=== PATIENT | female | born 1945 | race Caucasian/White ===

== ENCOUNTER 2017-05-22 12:03 | Emergency (ER) | payer MEDICARE ==
[2017-05-22] MEDS ORDERED: DIPH,PERTUS(ACELL)TETVAC-LF 0.5 ML VIAL IM ONE (12:12)
--- NOTE | 2017-05-22 12:16 | ED ---
General Adult HPI - General Stated complaint: Fall Time Seen by Provider: 05/22/17 12:07 Source: patient, RN notes reviewed Limitations: no limitations - History of Present Illness Initial comments: Patient is a pleasant 71-year-old female presenting to the emergency department following a fall. Incident occurred prior to arrival. Incident was not witnessed. Patient cannot provide many details. Patient reportedly is normally oriented 2. Patient denies any significant discomfort. No chest pain or dyspnea. No neck or back pain. No abdominal pain. Patient did ambulate following the fall. - Related Data Home Medications Medication Instructions Recorded Confirmed Cholecalciferol [Vitamin D3] 1,000 unit PO DAILY 04/25/16 05/22/17 Levothyroxine Sodium [Levoxyl] 88 mcg PO DAILY 04/25/16 05/22/17 Primidone [Mysoline] 50 mg PO BID 04/25/16 05/22/17 Simvastatin [Zocor] 40 mg PO HS 04/25/16 05/22/17 Acetaminophen [Tylenol] 500 mg PO Q4H PRN 04/28/17 05/22/17 Aspirin EC [Ecotrin] 325 mg PO DAILY 04/28/17 05/22/17 Budesonide [Budesonide EC] 9 mg PO AC-BRKFST 04/28/17 05/22/17 Donepezil [Aricept] 10 mg PO HS 04/28/17 05/22/17 FLUoxetine HCL [PROzac] 40 mg PO DAILY 04/28/17 05/22/17 INSULIN LISPRO (HumaLOG) [humaLOG] 10 units SQ AC-TID 04/28/17 05/22/17 INSULIN LISPRO (HumaLOG) [humaLOG] See Protocol SQ AC-TID PRN 04/28/17 05/22/17 Latanoprost [Xalatan 0.005%] 1 drop BOTH EYES HS 04/28/17 05/22/17 Loperamide HCl [Loperamide] 2 mg PO QID PRN 04/28/17 05/22/17 Previous Rx's Medication Instructions Recorded Clopidogrel Bisulfate [Plavix] 75 mg PO DAILY #30 tab 04/28/16 Insulin Glargine [Lantus] 14 units SQ HS #0 05/17/17 Cephalexin [Keflex] 500 mg PO TID #15 cap 05/22/17 Allergies Allergy/AdvReac Type Severity Reaction Status Date / Time Iodinated Contrast- Oral and Allergy Unknown Verified 05/22/17 12:08 IV Dye [Iodinated Contrast Media - IV Dye] Review of Systems ROS Statement: Those systems with pertinent positive or pertinent negative responses have been documented in the HPI. ROS Other: All systems not noted in ROS Statement are negative. Constitutional: Denies: fever Eyes: Denies: eye pain ENT: Denies: ear pain Respiratory: Denies: cough, dyspnea Cardiovascular: Denies: chest pain Endocrine: Denies: fatigue Gastrointestinal: Denies: abdominal pain Genitourinary: Denies: dysuria Musculoskeletal: Denies: back pain Skin: Denies: rash Neurological: Denies: weakness Past Medical History Past Medical History: Cancer, CVA/TIA, Diabetes Mellitus, Hypertension, Thyroid Disorder Additional Past Medical History / Comment(s): breast CA, kidney stones, colitis History of Any Multi-Drug Resistant Organisms: None Reported Additional Past Surgical History / Comment(s): left rotator cuff, lumpectomy Past Anesthesia/Blood Transfusion Reactions: No Reported Reaction Past Psychological History: Anxiety, Depression Smoking Status: Never smoker Past Alcohol Use History: None Reported Past Drug Use History: None Reported - Past Family History Father Family Medical History: Diabetes Mellitus Mother History Unknown: Yes General Exam Limitations: no limitations General appearance: alert, in no apparent distress Head exam: Present: other (forehead abrasions) Eye exam: Present: normal appearance, PERRL, EOMI ENT exam: Present: normal oropharynx, other (nasal swelling and mild tenderness. driedBlood in the nasal passages.) Neck exam: Present: normal inspection. Absent: tenderness Respiratory exam: Present: normal lung sounds bilaterally. Absent: chest wall tenderness Cardiovascular Exam: Present: regular rate, normal rhythm GI/Abdominal exam: Present: soft. Absent: tenderness Extremities exam: Present: normal inspection, full ROM. Absent: tenderness Back exam: Present: normal inspection. Absent: vertebral tenderness Neurological exam: Present: alert, CN II-XII intact. Absent: motor sensory deficit Expanded Patient oriented to: Present: person, place. Absent: time Sensory exam: Upper Extremity Light Touch: Normal, Lower Extremity Light Touch: Normal Motor strength exam: RUE: 5, LUE: 5, RLE: 5, LLE: 5 Psychiatric exam: Present: normal affect, normal mood Skin exam: Present: abrasion (facial abrasions) Course Vital Signs 05/22/17 12:13 Temperature 98.9 F Pulse Rate 74 Respiratory 16 Rate Blood Pressure 179/83 O2 Sat by Pulse 96 Oximetry Medical Decision Making - Medical Decision Making patient reevaluated and resting comfortably in bed. Patient and son updated on results - Lab Data Result diagrams: 05/22/17 12:38 05/22/17 12:38 Lab Results 05/22/17 05/22/17 05/22/17 Range/Units 12:38 12:38 12:38 WBC 5.9 (3.8-10.6) k/uL RBC 3.71 L (3.80-5.40) m/uL Hgb 11.3 L (11.4-16.0) gm/dL Hct 35.0 (34.0-46.0) % MCV 94.4 (80.0-100.0) fL MCH 30.5 (25.0-35.0) pg MCHC 32.3 (31.0-37.0) g/dL RDW 13.9 (11.5-15.5) % Plt Count 243 (150-450) k/uL Neutrophils % 71 % Lymphocytes % 19 % Monocytes % 6 % Eosinophils % 1 % Basophils % 1 % Neutrophils # 4.2 (1.3-7.7) k/uL Lymphocytes # 1.1 (1.0-4.8) k/uL Monocytes # 0.4 (0-1.0) k/uL Eosinophils # 0.1 (0-0.7) k/uL Basophils # 0.1 (0-0.2) k/uL PT 10.0 (9.0-12.0) sec INR 1.0 (<1.2) APTT 22.0 (22.0-30.0) sec Sodium 134 L (137-145) mmol/L Potassium 4.9 (3.5-5.1) mmol/L Chloride 96 L (98-107) mmol/L Carbon Dioxide 33 H (22-30) mmol/L Anion Gap 5 mmol/L BUN 20 H (7-17) mg/dL Creatinine 1.00 (0.52-1.04) mg/dL Est GFR (MDRD) Af Amer >60 (>60 ml/min/1.73 sqM) Est GFR (MDRD) Non-Af 55 (>60 ml/min/1.73 sqM) Glucose 190 H (74-99) mg/dL Calcium 9.5 (8.4-10.2) mg/dL Total Bilirubin 0.2 (0.2-1.3) mg/dL AST 38 H (14-36) U/L ALT 46 (9-52) U/L Alkaline Phosphatase 80 (38-126) U/L Total Protein 6.4 (6.3-8.2) g/dL Albumin 3.7 (3.5-5.0) g/dL - Radiology Data Radiology results: report reviewed (Computed tomography scan of the brain and cervical spine show no acute process.), image reviewed (Chest x-ray and pelvic x -ray show no acute process. X-ray of the nose shows anterior nasal bone fracture.) Disposition Clinical Impression: Fall, Nasal fracture Disposition: HOME SELF-CARE Condition: Stable Instructions: Fall Prevention for Older Adults (ED), Head Injury (ED), Nasal Fracture (ED) Additional Instructions: ice as needed. Please follow-up with primary care physician in the next couple days for recheck. Return for change in mental status, weakness, worsening symptoms or other concerns. Hold Plavix for the next 3 days.if patient is at risk for recurrent falls please discuss whether or not to continue Plavix with primary care physician. Prescriptions: Cephalexin [Keflex] 500 mg PO TID #15 cap Referrals: Harper Grande MD [Primary Care Provider] - 1-2 days Time of Disposition: 14:31
[2017-05-22 12:17] VITALS: PULSE 74; RESP 16
[2017-05-22 12:51] LABS: Basophils # (A) 0.1 k/uL (0-0.2); Basophils % (A) 1 %; Eosinophils # (A) 0.1 k/uL (0-0.7); Eosinophils % (A) 1 %; HGB 11.3 gm/dL (11.4-16.0); Lymphocytes # (A) 1.1 k/uL (1.0-4.8); Lymphocytes % (A) 19 %; MCH 30.5 pg (25.0-35.0); MCHC 32.3 g/dL (31.0-37.0); MCV 94.4 fL (80.0-100.0); Mean Platelet Volume 7.5; Monocytes # (A) 0.4 k/uL (0-1.0); Monocytes % (A) 6 %; Neutrophils # (A) 4.2 k/uL (1.3-7.7); Neutrophils % (A) 71 %; Platelet Count 243 k/uL (150-450); RBC 3.71 m/uL (3.80-5.40); RDW 13.9 % (11.5-15.5); WBC 5.9 k/uL (3.8-10.6)
--- NOTE | 2017-05-22 12:51 | CT ---
EXAMINATION TYPE: CT brain becca spence DATE OF EXAM: 05/22/2017 COMPARISON: 05/14/2017 HISTORY: Fall CT DLP: 1405.2 mGycm Automated exposure control for dose reduction was used. TECHNIQUE: CT scan of the head and cervical spine are performed without contrast. FINDINGS: There is cerebral cortical atrophy. There is patchy hypodensity in the periventricular wh ite matter. There is no mass effect nor midline shift. There is no sign of intracranial hemorrhage. T he calvarium is intact. The cervical vertebra have normal alignment. There is narrowing of disc spaces from C4 to C7 with spu rring of the endplates. Facet joints are intact. Skull base is intact. IMPRESSION: Negative CT scan of the cervical spine. Spondylotic changes. Cerebral atrophy and chronic small vessel ischemia without change compared to old exam. No acute intr acranial abnormality.
[2017-05-22 12:56] LABS: ALT 46 U/L (9-52); AST 38 U/L (14-36); Albumin 3.7 g/dL (3.5-5.0); Alkaline Phosphatase 80 U/L (38-126); Anion Gap 5 mmol/L; Blood Urea Nitrogen 20 mg/dL (7-17); Calcium 9.5 mg/dL (8.4-10.2); Carbon Dioxide 33 mmol/L (22-30); Chloride 96 mmol/L (98-107); Glucose 190 mg/dL (74-99); Potassium 4.9 mmol/L (3.5-5.1); Sodium 134 mmol/L (137-145); Total Bilirubin 0.2 mg/dL (0.2-1.3); Total Protein 6.4 g/dL (6.3-8.2)
--- NOTE | 2017-05-22 13:49 | XR ---
EXAMINATION TYPE: XR chest 1V portable DATE OF EXAM: 05/22/2017 COMPARISON: 05/14/2017 HISTORY: Fall. Pain. TECHNIQUE: Single frontal view of the chest is obtained. FINDINGS: Heart and mediastinum are normal. Lungs are clear. Diaphragm is normal. Bony thorax is int act. There is no sign of pleural effusion or pneumothorax. IMPRESSION: No active cardiopulmonary disease. No change.
--- NOTE | 2017-05-22 13:49 | XR ---
EXAMINATION TYPE: XR nasal bone DATE OF EXAM: 05/22/2017 COMPARISON: NONE HISTORY: Pain TECHNIQUE: 3 views FINDINGS: Nasal bone shows evidence of a nondisplaced fracture of the anterior tip on the lateral vie w. Maxillary spine is intact. There is normal aeration of the maxillary sinuses. IMPRESSION: Anterior nasal bone fracture.
--- NOTE | 2017-05-22 13:52 | XR ---
EXAMINATION TYPE: XR pelvis AP view DATE OF EXAM: 05/22/2017 COMPARISON: NONE HISTORY: Fall TECHNIQUE: Single view FINDINGS: Pelvic ring is intact. Proximal femurs and hip joints are intact. Sacroiliac joints appear normal. IMPRESSION: Negative pelvis exam. No fracture.
[2017-05-22 14:51] VITALS: BP 158/72; TEMP 97
== END 2017-05-22 15:20 | disposition home or self-care (01) ==
LOC: EC 12:03
DX: S02.2XXA Fracture of nasal bones, initial encounter for closed fracture (principal); S00.81XA Abrasion of other part of head, initial encounter; E11.9 Type 2 diabetes mellitus without complications; I10 Essential (primary) hypertension; E07.9 Disorder of thyroid, unspecified; F32.9 Major depressive disorder, single episode, unspecified; Z85.3 Personal history of malignant neoplasm of breast; Z91.041 Radiographic dye allergy status; Z23 Encounter for immunization; Z79.51 Long term (current) use of inhaled steroids; Z79.82 Long term (current) use of aspirin; Z79.4 Long term (current) use of insulin; Z79.899 Other long term (current) drug therapy; W19.XXXA Unspecified fall, initial encounter
CPT/HCPCS: 36415; 70160; 70450; 71010; 72125; 72170; 80053; 85025; 85610; 85730; 90471; 90715; 99284

== ENCOUNTER 2019-03-09 18:55 | Emergency (ER) | payer MEDICARE ==
[2019-03-09] MEDS ORDERED: ONDANSETRON 4 MG/2 ML VIAL IVP STA (19:41)
[2019-03-09] MEDS ORDERED: SODIUM CHLORIDE 0.9% 1,000 ML IV STA (19:41)
[2019-03-09 20:19] LABS: Basophils # (A) 0.2 k/uL (0-0.2); Basophils % (A) 2 %; Eosinophils # (A) 0.1 k/uL (0-0.7); Eosinophils % (A) 1 %; HCT 38.2 % (34.0-46.0); HGB 12.1 gm/dL (11.4-16.0); Lymphocytes # (A) 1.3 k/uL (1.0-4.8); Lymphocytes % (A) 15 %; MCH 32.7 pg (25.0-35.0); MCHC 31.7 g/dL (31.0-37.0); Macrocytosis Slight; Mean Platelet Volume 8.6; Monocytes # (A) 0.5 k/uL (0-1.0); Monocytes % (A) 5 %; Neutrophils # (A) 6.5 k/uL (1.3-7.7); Neutrophils % (A) 74 %; Platelet Count 226 k/uL (150-450); RBC 3.71 m/uL (3.80-5.40); WBC 8.7 k/uL (3.8-10.6)
--- NOTE | 2019-03-09 20:25 | XR ---
EXAMINATION TYPE: XR KUB DATE OF EXAM: 03/09/2019 COMPARISON: 05/27/2015 HISTORY: Nausea and vomiting TECHNIQUE: 2 views supine FINDINGS: There is no sign of intestinal obstruction or pneumoperitoneum. Fecal pattern is normal. Th ere is no evidence of a mass. There is mild compression deformity of T12 vertebra. There is old small calcification over the right kidney measure up to 4 mm. There is calcification ove r the lower pole left kidney measuring more than 1 cm. There is no evidence of a mass. Lung bases are clear. IMPRESSION: Nonacute abdomen. Multiple bilateral renal calculi. Calculi not significantly different t old exam.
[2019-03-09 21:47] LABS: Potassium 4.3 mmol/L (3.5-5.1); Total Bilirubin 0.3 mg/dL (0.2-1.3); Total Protein 7.1 g/dL (6.3-8.2)
[2019-03-09 22:01] LABS: Amorphous Sediment,Urine Rare /hpf; Appearance,Urine Cloudy (Clear); Bacteria,Urine Rare /hpf; Bilirubin,Urine Negative (Negative); Blood,Urine Negative (Negative); Calcium Oxalate Crystals,Urine Occasional /hpf; Color,Urine Yellow; Glucose,Urine (UA) Negative (Negative); Hyaline Casts,Urine 3 /lpf (0-2); Ketones,Urine Negative (Negative); Leukocyte Esterase,Urine Large (Negative); Mucus,Urine Rare /hpf; Nitrite,Urine Negative (Negative); PH, Urine 5.5 (5.0-8.0); Protein,Urine 1+ (Negative); RBC,Urine 5 /hpf (0-5); Specific Gravity,Urine 1.022 (1.001-1.035); Squamous Epithelial Cell,Urine 3 /hpf (0-4); Urobilinogen,Urine <2.0 mg/dL (<2.0); WBC,Urine 65 /hpf (0-5)
--- NOTE | 2019-03-09 22:36 | ED ---
General Adult HPI - General Chief complaint: Nausea/Vomiting/Diarrhea Stated complaint: vomiting after eating Time Seen by Provider: 03/09/19 19:30 Source: family Mode of arrival: wheelchair Limitations: no limitations - History of Present Illness Initial comments: Patient is a 73-year-old female with history of dementia and chronic diarrhea is presenting to emergency Department with a chief complaint of nausea or vomiting. Son is also present in the room. Son reports the patient lives in an assisted living facility. Son reports the patient has only had a small bowel movement earlier today which she typically has multiple throughout the day. Son also reports the patient attempted to eat earlier today and vomited everything. Son denies any hematemesis. Son reports they attempted to sit the patient up she was complaining of "butt pain". At this time patient denies any abdominal pain, nausea, chest pain, shortness of breath, headaches, blurry vision. Patient is a complaint at this time. - Related Data Home Medications Medication Instructions Recorded Confirmed Cholecalciferol [Vitamin D3 (25 1,000 unit PO DAILY 04/25/16 05/22/17 Mcg = 1000 Iu)] Levothyroxine Sodium [Levoxyl] 88 mcg PO DAILY 04/25/16 05/22/17 Primidone [Mysoline] 50 mg PO BID 04/25/16 05/22/17 Simvastatin [Zocor] 40 mg PO HS 04/25/16 05/22/17 Acetaminophen [Tylenol] 500 mg PO Q4H PRN 04/28/17 05/22/17 Aspirin EC [Ecotrin] 325 mg PO DAILY 04/28/17 05/22/17 Budesonide [Budesonide EC] 9 mg PO AC-BRKFST 04/28/17 05/22/17 Donepezil [Aricept] 10 mg PO HS 04/28/17 05/22/17 FLUoxetine HCL [PROzac] 40 mg PO DAILY 04/28/17 05/22/17 INSULIN LISPRO (HumaLOG) [humaLOG] 10 units SQ AC-TID 04/28/17 05/22/17 INSULIN LISPRO (HumaLOG) [humaLOG] See Protocol SQ AC-TID PRN 04/28/17 05/22/17 Latanoprost [Xalatan 0.005%] 1 drop BOTH EYES HS 04/28/17 05/22/17 Loperamide HCl [Loperamide] 2 mg PO QID PRN 04/28/17 05/22/17 Previous Rx's Medication Instructions Recorded Clopidogrel Bisulfate [Plavix] 75 mg PO DAILY #30 tab 04/28/16 Insulin Glargine [Lantus] 14 units SQ HS #0 05/17/17 Cephalexin [Keflex] 500 mg PO TID #15 cap 05/22/17 Cephalexin [Keflex] 500 mg PO Q6HR #40 cap 03/09/19 Polyethylene Glycol 3350 [Miralax] 17 gm PO DAILY #527 gm 03/09/19 Allergies Allergy/AdvReac Type Severity Reaction Status Date / Time Iodinated Contrast Media Allergy Unknown Verified 05/22/17 12:08 [Iodinated Contrast Media - IV Dye] Review of Systems ROS Statement: Those systems with pertinent positive or pertinent negative responses have been documented in the HPI. ROS Other: All systems not noted in ROS Statement are negative. Past Medical History Past Medical History: Cancer, CVA/TIA, Diabetes Mellitus, Hypertension, Thyroid Disorder Additional Past Medical History / Comment(s): breast CA, kidney stones, colitis History of Any Multi-Drug Resistant Organisms: None Reported Additional Past Surgical History / Comment(s): left rotator cuff, lumpectomy Past Anesthesia/Blood Transfusion Reactions: No Reported Reaction Past Psychological History: Anxiety, Depression Smoking Status: Never smoker Past Alcohol Use History: None Reported Past Drug Use History: None Reported - Past Family History Father Family Medical History: Diabetes Mellitus Mother History Unknown: Yes General Exam Limitations: no limitations General appearance: alert, in no apparent distress Head exam: Present: atraumatic, normocephalic, normal inspection Eye exam: Present: normal appearance Pupils: Present: normal accommodation ENT exam: Present: normal exam, normal oropharynx, mucous membranes moist, TM's normal bilaterally, normal external ear exam Neck exam: Present: normal inspection, full ROM Respiratory exam: Present: normal lung sounds bilaterally Cardiovascular Exam: Present: regular rate, normal rhythm, normal heart sounds GI/Abdominal exam: Present: soft, normal bowel sounds. Absent: distended, tenderness, guarding, rebound, rigid Rectal exam: Absent: normal inspection (There is small external hemorrhoid at 12:00.) Extremities exam: Present: normal inspection, full ROM Back exam: Present: normal inspection, full ROM Neurological exam: Present: alert, oriented X3 Psychiatric exam: Present: normal affect, normal mood Skin exam: Present: warm, intact, normal color Course Vital Signs 03/09/19 03/09/19 19:19 22:45 Temperature 98.1 F 97.5 F L Pulse Rate 97 77 Respiratory 20 18 Rate Blood Pressure 131/77 122/85 O2 Sat by Pulse 95 96 Oximetry Medical Decision Making - Medical Decision Making Patient is a 73-year-old female with history of dementia and chronic diarrhea is presenting to emergency Department with a chief complaint of nausea vomiting. Patient typically has diarrhea but today she did not have any low bowel movements. Patient also vomited after she ate today. Patient was also complaining of rectal pain. On physical examination there is a very small external hemorrhoid located at 12:00. Rest of physical examination is unremarkable. KUB is unremarkable with mild stool impaction. CBC and CMP are unremarkable. UA is indicative of a UTI. Patient will be treated accordingly. On reevaluation patient reports that she feels fine and is ready go home. The son is comfortable taking the patient home. Patient will be discharged with antibiotics and MiraLAX as needed. Strict return parameters were thoroughly discussed with son who is understanding and agreeable. Case discussed with physician. - Lab Data Result diagrams: 03/09/19 20:05 03/09/19 21:19 Lab Results 03/09/19 03/09/19 03/09/19 Range/Units 20:05 21:19 21:36 WBC 8.7 (3.8-10.6) k/uL RBC 3.71 L (3.80-5.40) m/uL Hgb 12.1 (11.4-16.0) gm/dL Hct 38.2 (34.0-46.0) % MCV 103.0 H (80.0-100.0) fL MCH 32.7 (25.0-35.0) pg MCHC 31.7 (31.0-37.0) g/dL RDW 13.0 (11.5-15.5) % Plt Count 226 (150-450) k/uL Neutrophils % 74 % Lymphocytes % 15 % Monocytes % 5 % Eosinophils % 1 % Basophils % 2 % Neutrophils # 6.5 (1.3-7.7) k/uL Lymphocytes # 1.3 (1.0-4.8) k/uL Monocytes # 0.5 (0-1.0) k/uL Eosinophils # 0.1 (0-0.7) k/uL Basophils # 0.2 (0-0.2) k/uL Macrocytosis Slight Sodium 138 (137-145) mmol/L Potassium 4.3 (3.5-5.1) mmol/L Chloride 106 (98-107) mmol/L Carbon Dioxide 25 (22-30) mmol/L Anion Gap 7 mmol/L BUN 24 H (7-17) mg/dL Creatinine 1.04 (0.52-1.04) mg/dL Est GFR (CKD-EPI)AfAm 62 (>60 ml/min/1.73 sqM) Est GFR (CKD-EPI)NonAf 54 (>60 ml/min/1.73 sqM) Glucose 93 (74-99) mg/dL Calcium 9.0 (8.4-10.2) mg/dL Total Bilirubin 0.3 (0.2-1.3) mg/dL AST 50 H (14-36) U/L ALT 60 H (9-52) U/L Alkaline Phosphatase 73 (38-126) U/L Total Protein 7.1 (6.3-8.2) g/dL Albumin 4.0 (3.5-5.0) g/dL Amylase 48 (30-110) U/L Lipase 90 (23-300) U/L Urine Color Yellow Urine Appearance Cloudy H (Clear) Urine pH 5.5 (5.0-8.0) Ur Specific [place] 1.022 (1.001-1.035) Urine Protein 1+ H (Negative) Urine Glucose (UA) Negative (Negative) Urine Ketones Negative (Negative) Urine Blood Negative (Negative) Urine Nitrite Negative (Negative) Urine Bilirubin Negative (Negative) Urine Urobilinogen <2.0 (<2.0) mg/dL Ur Leukocyte Esterase Large H (Negative) Urine RBC 5 (0-5) /hpf Urine WBC 65 H (0-5) /hpf Ur Squamous Epith Cells 3 (0-4) /hpf Calcium Oxalate Crystal Occasional H (None) /hpf Amorphous Sediment Rare H (None) /hpf Urine Bacteria Rare H (None) /hpf Hyaline Casts 3 H (0-2) /lpf Urine Mucus Rare H (None) /hpf Disposition Clinical Impression: UTI (urinary tract infection), Nausea & vomiting Disposition: HOME SELF-CARE Condition: Stable Instructions (If sedation given, give patient instructions): Acute Nausea and Vomiting (ED) Additional Instructions: Please take prescribed medication as directed. Please follow with primary care. Please return to emergency department since worsen. Prescriptions: Cephalexin [Keflex] 500 mg PO Q6HR #40 cap Polyethylene Glycol 3350 [Miralax] 17 gm PO DAILY #527 gm Is patient prescribed a controlled substance at d/c from ED?: No Referrals: Blas Riddle MD [Primary Care Provider] - 1-2 days Time of Disposition: 22:36
[2019-03-09 22:47] VITALS: BP 122/85; PULSE 77; RESP 18; TEMP 97.5
== END 2019-03-09 22:53 | disposition home or self-care (01) ==
LOC: EC 18:55
DX: N39.0 Urinary tract infection, site not specified (principal); R19.7 Diarrhea, unspecified; F03.90 Unspecified dementia, unspecified severity, without behavioral disturbance, psychotic disturbance, mood disturbance, and anxiety; K64.4 Residual hemorrhoidal skin tags; K56.41 Fecal impaction; E11.9 Type 2 diabetes mellitus without complications; I10 Essential (primary) hypertension; E07.9 Disorder of thyroid, unspecified; F41.9 Anxiety disorder, unspecified; F32.9 Major depressive disorder, single episode, unspecified; Z79.890 Hormone replacement therapy; Z79.4 Long term (current) use of insulin; Z79.82 Long term (current) use of aspirin; Z79.899 Other long term (current) drug therapy; Z87.442 Personal history of urinary calculi; Z91.041 Radiographic dye allergy status; Z85.3 Personal history of malignant neoplasm of breast; Z86.73 Personal history of transient ischemic attack (TIA), and cerebral infarction without residual deficits
CPT/HCPCS: 99284; 96374; 96361 ×3; 36415; 80053; 82150; 83690; 85025; 81001; 87086; 74018; J2405